=== PATIENT | male | born 1940 | race Caucasian/White ===

== ENCOUNTER 2016-05-01 10:34 | Outpatient (CLI) | payer MEDICARE ==
[2016-05-01 11:20] LABS: #Eosinphils 0.1 thou/uL (0.0-0.7); #Lymphocytes 1.5 thou/uL (1.20-3.40); #Monocytes 0.3 thou/uL (0.11-0.59); #Neutrophils 3.4 thou/uL (1.40-6.50); %Basophils 0.6 % (0.0-1.0); %Lymphocytes 27.9 % (21.0-51.0); %Monocytes 5.3 % (0.0-10.0); Hematocrit 41.9 % (42.0-52.0); Red Blood Cell (RBC) Count 5.04 mill/uL (4.70-6.10); White Blood Cell (WBC) Count 5.3 thou/uL (4.8-10.8)
[2016-05-01 11:28] LABS: Hemoglobin A1c 14.3 % (4.0-6.0)
[2016-05-01 11:31] LABS: Bilirubin, Total 0.6 mg/dL (0.2-1.2); Calcium 9.1 mg/dL (7.8-10.44); Chloride 96 mmol/L (98-107)
[2016-05-01 11:44] LABS: ALT (SGPT) 23 U/L (0-55); AST (SGOT) 19 U/L (5-34); Alkaline Phosphatase 85 U/L (40-150); BUN (Urea Nitrogen) 25 mg/dL (8.4-25.7); Calc. Creatinine Clearance 0 mL/min (70-130); Carbon Dioxide 24 mmol/L (23-31); Estimated GFR-MDRD 37; Protein, Total 7.3 g/dL (5.8-8.1)
[2016-05-01 11:58] LABS: Anion Gap 16 mmol/L (10-20)
== END 2016-05-01 10:35 ==
LOC: NAVSJIPCSP 10:34 → NAV LAB 10:35
PROVIDERS: ATTEND Internal Medicine
DX: Z51.81 Encounter for therapeutic drug level monitoring (principal); Z79.899 Other long term (current) drug therapy
CPT/HCPCS: 80053; 83036; 84443; 85025

== ENCOUNTER 2016-06-21 15:30 | Outpatient (CLI) | payer MEDICARE ==
[2016-06-21 15:52] LABS: Hemoglobin A1c 8.7 % (4.0-6.0)
[2016-06-21 16:14] LABS: Anion Gap 17 mmol/L (10-20); BUN (Urea Nitrogen) 25 mg/dL (8.4-25.7); Calc. Creatinine Clearance 0 mL/min (70-130); Calcium 9.6 mg/dL (7.8-10.44); Carbon Dioxide 20 mmol/L (23-31); Chloride 106 mmol/L (98-107); Estimated GFR-MDRD 48; Glucose 91 mg/dL (83-110); Potassium 4.8 mmol/L (3.5-5.1); Sodium 138 mmol/L (136-145)
== END 2016-06-21 15:31 ==
LOC: NAVSJIPCSP 15:30
PROVIDERS: ATTEND Internal Medicine
DX: E13.9 Other specified diabetes mellitus without complications (principal); N40.0 Benign prostatic hyperplasia without lower urinary tract symptoms
CPT/HCPCS: 36415; 80048; 83036

== ENCOUNTER 2016-08-01 10:18 | Outpatient (CLI) | payer MEDICARE ==
[2016-08-01 12:33] LABS: Hemoglobin A1c 6.4 % (4.0-6.0)
[2016-08-01 12:54] LABS: Anion Gap 17 mmol/L (10-20); BUN (Urea Nitrogen) 14 mg/dL (8.4-25.7); Calc. Creatinine Clearance 0 mL/min (70-130); Calcium 9.2 mg/dL (7.8-10.44); Carbon Dioxide 25 mmol/L (23-31); Chloride 104 mmol/L (98-107); Estimated GFR-MDRD 47; Glucose 165 mg/dL (83-110); Potassium 4.8 mmol/L (3.5-5.1); Sodium 141 mmol/L (136-145)
== END 2016-08-01 10:19 | disposition home or self-care (01) ==
LOC: NAVSJIPCSP 10:18
PROVIDERS: ATTEND Internal Medicine
DX: E13.9 Other specified diabetes mellitus without complications (principal)
CPT/HCPCS: 36415; 80048; 83036

== ENCOUNTER 2016-10-02 15:23 | Outpatient (CLI) | payer MEDICARE ==
[2016-10-02 17:20] LABS: Anion Gap 15 mmol/L (10-20); BUN (Urea Nitrogen) 28 mg/dL (8.4-25.7); Calc. Creatinine Clearance 0 mL/min (70-130); Calcium 9.2 mg/dL (7.8-10.44); Carbon Dioxide 24 mmol/L (23-31); Chloride 102 mmol/L (98-107); Estimated GFR-MDRD 35; Glucose 96 mg/dL (83-110); Potassium 5.1 mmol/L (3.5-5.1); Sodium 136 mmol/L (136-145)
== END 2016-10-02 15:24 | disposition home or self-care (01) ==
LOC: NAVSJIPCSP 15:23 → NAV LAB 15:24
PROVIDERS: ATTEND Internal Medicine
DX: E11.21 Type 2 diabetes mellitus with diabetic nephropathy (principal)
CPT/HCPCS: 36415; 80048; 83036

== ENCOUNTER 2017-12-17 13:49 | Outpatient (CLI) | payer MEDICARE ==
--- NOTE | 2017-12-17 15:35 | RAD ---
PA AND LATERAL VIEWS OF THE CHEST: 12/17/17 HISTORY: Weakness and high blood pressure. FINDINGS: Comparison is made with exam of 05/15/16. Left sided pacemaker device remains in place. Herat size is borderline. Chronic changes again seen in the lung watt bilaterally. No lobar consolidation, pneumothoraces, fr ank pulmonary edema or pleural effusions are noted. There are degenerative changes in the spine. IMPRESSION: No acute process. POS: HITESH
== END 2017-12-17 13:50 | disposition home or self-care (01) ==
LOC: NAV RAD 13:49
PROVIDERS: ATTEND Internal Medicine
DX: I10 Essential (primary) hypertension (principal)
CPT/HCPCS: 71046

== ENCOUNTER 2019-11-12 11:08 | Outpatient (CLI) | payer MEDICARE ==
--- NOTE | 2019-11-13 07:30 | RAD ---
EXAM: Chest PA and lateral: HISTORY: Cough. COMPARISON: 12/17/2017 FINDINGS: Stable left-sided dual-lead transvenous pacemaker. Heart: Normal cardiac silhouette Aorta: Atherosclerosis Pulmonary vessels: Normal Costophrenic angles: Costophrenic angles are clear. Lungs: No masses or consolidation. Chronic lung parenchymal changes. Pneumothorax: No pneumothorax Osseous structures: No osseous abnormalities IMPRESSION: 1. No acute cardiopulmonary process 2. Chronic lung parenchymal changes. 3. Atherosclerosis.
== END 2019-11-12 11:09 | disposition home or self-care (01) ==
LOC: NAV RAD 11:08
PROVIDERS: ATTEND Internal Medicine
DX: R05 Cough (principal); I70.0 Atherosclerosis of aorta
CPT/HCPCS: 71046

== ENCOUNTER 2020-06-08 15:34 | Outpatient (CLI) | payer BC, MEDICARE | END 2020-06-08 15:35 | disposition home or self-care (01) | LOC: NAV RAD 15:34 | PROVIDERS: ATTEND Internal Medicine | DX: J20.9 Acute bronchitis, unspecified (principal) | CPT/HCPCS: 71046 ==